=== PATIENT | female | born 1970 | race Caucasian/White ===

== ENCOUNTER 2017-08-06 07:33 | Day surgery (SDC) | payer BC ==
[~2017-08-06 07:33] MED LIST: LIDOCAINE HCL 1% MPF SOL ONE; PROPOFOL 500 MG/50 ML EMU IV ONE
[2017-08-06 09:17] VITALS: BP 119/85; PULSE 76; RESP 20; TEMP 96.9; O2SAT 99
== END 2017-08-06 09:25 | disposition home or self-care (01) ==
LOC: SURG 07:33
PROVIDERS: ATTEND Surgery
DX: K92.1 Melena (principal); D50.0 Iron deficiency anemia secondary to blood loss (chronic); Z80.0 Family history of malignant neoplasm of digestive organs; K64.4 Residual hemorrhoidal skin tags
CPT/HCPCS: 45378; 84703; J2001; J2704